=== PATIENT | male | born 1950 | race Caucasian/White ===

== ENCOUNTER 2016-04-21 05:34 | Day surgery (SDC) | payer MEDICARE ==
--- NOTE | ~2016-04-21 | EGD ---
EGD REPORT [facility] [address] [place] [id number] NAME: JAMIL BRAGA : [birth year] STATUS : REG [facility]#: [id number] AGE: 65 ADM/REG DATE : 04/21/16 MR#: [id number] REPORT SERV DATE: 04/21/16 DICTATED BY: BRANDON VILLA DATE: 04/21/16 REPORT STATUS : Draft TRANSCRIBED BY: [employer] DATE: 04/21/16 [facility] Patient Name: Jamil Braga Date of : 1950 Attending MD: BRANDON VILLA, Procedure Date No Time: 04/21/2016 Procedure: Colonoscopy Indications: High risk colon cancer surveillance: Personal history of colonic polyps Referring MD: CHON ANDREA Medicines: Monitored Anesthesia Care Complications: No immediate complications. Estimated blood loss: None. Procedure: Pre-Anesthesia Assessment: - ASA Grade Assessment: II - A patient with mild systemic disease. After I obtained informed consent, the scope was passed under direct vision. Throughout the procedure, the patient's blood pressure, pulse, and oxygen saturations were monitored continuously. The CF [id number] was introduced through the anus and advanced to the cecum, identified by appendiceal orifice and ileocecal valve. The colonoscopy was performed without difficulty. The patient tolerated the procedure well. The quality of the bowel preparation was good. Findings: The perianal and digital rectal examinations were normal. Two sessile polyps were found in the cecum. The polyps were 2 to 3 mm in size. These polyps were removed with a cold biopsy forceps. Resection and retrieval were complete. Verification of patient identification for the specimen was done. Estimated blood loss was minimal. Three sessile polyps were found in the ascending colon. The polyps were 8 to 16 mm in size. These polyps were removed with a hot snare. Resection and retrieval were complete. Verification of patient identification for the specimen was done. Estimated blood loss was minimal. A sessile polyp was found in the rectum. The polyp was 3 mm in size. The polyp was removed with a cold biopsy forceps. Resection and retrieval were complete. Verification of patient identification for the specimen was done. Estimated blood loss was minimal. A sessile polyp was found in the rectum. The polyp was 10 mm in size. The polyp was removed with a hot snare. Resection and retrieval were complete. Verification of patient identification for the specimen was done. Estimated blood loss was minimal. Many small-mouthed diverticula were found in the sigmoid colon, in the EGD REPORT [address] [place]. [address] NAME: JAMIL BRAGA : [birth year] STATUS : REG [facility] PAT#: [id number] AGE: 65 ADM/REG DATE : 04/21/16 MR#: [id number] REPORT SERV DATE: 04/21/16 DICTATED BY: BRANDON VILLA DATE: 04/21/16 REPORT STATUS : Draft TRANSCRIBED BY: [employer] DATE: 04/21/16 descending colon and in the transverse colon. The exam was otherwise without abnormality on direct and retroflexion views. Impression: - Two 2 to 3 mm polyps in the cecum. Resected and retrieved. - Three 8 to 16 mm polyps in the ascending colon. Resected and retrieved. - One 3 mm polyp in the rectum. Resected and retrieved. - One 10 mm polyp in the rectum. Resected and retrieved. - Diverticulosis in the sigmoid colon, in the descending colon and in the transverse colon. - The examination was otherwise normal on direct and retroflexion views. Recommendation: - Patient has a contact number available for emergencies. The signs and symptoms of potential delayed complications were discussed with the patient. Return to normal activities tomorrow. Written discharge instructions were provided to the patient. - Return to previous diet. - Continue present medications. - Await pathology results. - Repeat colonoscopy in 2 years for surveillance. Procedure Code(s): --- Professional --- 63640, Colonoscopy, flexible, proximal to splenic flexure; with removal of tumor(s), polyp(s), or other lesion(s) by snare technique 35117, 59, Colonoscopy, flexible, proximal to splenic flexure; with biopsy, single or multiple Diagnosis Code(s): --- Professional --- K62.1, Rectal polyp D12.2, Benign neoplasm of ascending colon D12.0, Benign neoplasm of cecum K57.30, Diverticulosis of large intestine without perforation or abscess without bleeding Z86.010, Personal history of colonic polyps CPT copyright 2013 [employer]. All rights reserved. The codes documented in this report are preliminary and upon repair miller review may be revised to meet current compliance requirements. EGD REPORT [facility] [address] [address] NAME: JAMIL BRAGA : [birth year] STATUS : REG [facility]#: [id number] AGE: 65 ADM/REG DATE : 04/21/16 MR#: [id number] REPORT SERV DATE: 04/21/16 DICTATED BY: BRANDON VILLA DATE: 04/21/16 REPORT STATUS : Draft TRANSCRIBED BY: [employer] DATE: 04/21/16 BRANDON VILLA 04/21/2016 7:51 AM Number of Addenda: 0 Note Initiated On: 04/21/2016 7:03 AM Scope Withdrawal Time 0 hours 21 minutes 53 seconds [address] [id number]
[~2016-04-21 05:34] MED LIST: ATV.5 PO; BACTROCR TOP; CIALIS5 MG PO; DIPROLENE CREAM15 GM TOP; EXCEDRIN EXTRA1 EACH PO; LAM250 PO; LEVAQUIN750 MG PO; PCET; PCET PO; T PO; ZOCOR20 PO; ZOMIG ZMT5 MG PO
== END 2016-04-21 23:59 | disposition home or self-care (01) ==
LOC: DMU 05:34
PROVIDERS: Internal Medicine Gastroenterology
PROC: 0DBH8ZX Excision of Cecum, Via Natural or Artificial Opening Endoscopic, Diagnostic (ICD-10-PCS; 2016-04-21)
PROC: 0DBK8ZX Excision of Ascending Colon, Via Natural or Artificial Opening Endoscopic, Diagnostic (ICD-10-PCS; principal; 2016-04-21 07:00)
PROC: 0DBP8ZX Excision of Rectum, Via Natural or Artificial Opening Endoscopic, Diagnostic (ICD-10-PCS; 2016-04-21 07:00)
DX: D12.0 Benign neoplasm of cecum (principal); D12.8 Benign neoplasm of rectum; D12.2 Benign neoplasm of ascending colon; G43.909 Migraine, unspecified, not intractable, without status migrainosus; K21.9 Gastro-esophageal reflux disease without esophagitis; E78.5 Hyperlipidemia, unspecified; F41.9 Anxiety disorder, unspecified; F32.9 Major depressive disorder, single episode, unspecified; E78.00 Pure hypercholesterolemia, unspecified; Z79.82 Long term (current) use of aspirin; Z86.010 Personal history of colon polyps; Z79.899 Other long term (current) drug therapy; Z98.890 Other specified postprocedural states; Z85.46 Personal history of malignant neoplasm of prostate
CPT/HCPCS: 88305